=== PATIENT | female | born 1995 | race African-American/Black ===

== ENCOUNTER 2016-07-19 18:22 | Emergency (ER) | payer OTHER ==
[~2016-07-19] VITALS: Ht 162.6 cm; Wt 58.1 kg
[2016-07-19 18:31] VITALS: TEMP 37.5
--- NOTE | 2016-07-19 18:45 | EMERGENCY ROOM VISIT NOTE ---
History Report prepared by Tess: Jessica Fulton Under the Supervision of: Dr. Jadyn Cleary M.D. First contact with patient: 18:36 Chief Complaint: ED VAG BLEEDING Stated Complaint: POSSIBLE MISCARRIAGE,BLEEDING,CRAMPS,6-8 WKS PREG History of Present Illness The patient is a 21 year old female who presents to the Emergency Room with complaints of worsening vaginal bleeding beginning yesterday. She states that she took two at home test that were positive and went to the clinic [place] and tested positive for being . Yesterday she began to experience thick bleeding with back pain. She describes the back pain as a cramping sensation. She notes that she is passing clots. The patient notes that her normal period does not present with these symptoms. She denies fever or known medical problems. This is her second . She is scheduled for an appointment later this week with OBGYN. Source of History: patient Onset: yesterday Position: other (vaginal) Quality: other (bleeding) Timing: worsening Associated Symptoms: + back pain Note: The patient is bleeding thick and passing clots. Review of Systems See HPI for pertinent positives & negatives. A total of 10 systems reviewed and were otherwise negative. Past Medical & Surgical Medical Problems: (1) No known health problems Family History Cancer Diabetes mellitus Social History Smoking Status: Current Every Day Smoker Alcohol Use: occasionally Drug Use: none Housing Status: lives with family Occupation Status: employed Current/Historical Medications No Active Prescriptions or Reported Meds Allergies Coded Allergies: No Known Allergies (Unverified , 08/26/14) Physical Exam Vital Signs Date Time Temp Pulse Resp B/P Pulse Ox O2 Delivery O2 Flow Rate FiO2 07/19/16 21:42 81 16 120/71 99 07/19/16 20:23 80 16 118/72 99 Room Air 07/19/16 19:01 100 Room Air 07/19/16 18:31 37.5 86 18 122/73 96 Room Air Physical Exam Vital signs reviewed. General: Well-appearing female, in no significant distress. HEENT: No scleral icterus, PERRLA, neck supple. Atraumatic. Cardiovascular: Regular rate and rhythm, no extra sounds. Pulmonary: Clear to auscultation bilaterally, normal work of breathing. Abdomen: Soft, nontender, nondistended, positive bowel sounds. Musculoskeletal: Atraumatic, no peripheral edema. Neurologic: Patient awake alert and oriented x 3 Skin: Warm, dry, no rash Pelvic: Small amount of dark vaginal blood, cervix is closed. No CMT, no adnexal tenderness. Medical Decision & Procedures Laboratory Results 07/19/16 18:53 Red Blood Count 4.61, Mean Corpuscular Volume 85.0, Mean Corpuscular Hemoglobin 29.5, Mean Corpuscular Hemoglobin Concent 34.7, Mean Platelet Volume 10.2, Neutrophils (%) (Auto) 61.9, Lymphocytes (%) (Auto) 27.8, Monocytes (%) (Auto) 8.9, Eosinophils (%) (Auto) 1.1, Basophils (%) (Auto) 0.1, Neutrophils # (Auto) 5.62, Lymphocytes # (Auto) 2.53, Monocytes # (Auto) 0.81, Eosinophils # (Auto) 0.10, Basophils # (Auto) 0.01 07/19/16 18:53 Test 07/19/16 18:53 07/19/16 20:43 White Blood Count 9.09 K/uL (4.8-10.8) Red Blood Count 4.61 M/uL (4.2-5.4) Hemoglobin 13.6 g/dL (12.0-16.0) Hematocrit 39.2 % (37-47) Mean Corpuscular Volume 85.0 fL (80-100) Mean Corpuscular Hemoglobin 29.5 pg (25-34) Mean Corpuscular Hemoglobin Concent 34.7 g/dl (32-36) Platelet Count 220 K/uL (130-400) Mean Platelet Volume 10.2 fL (7.4-10.4) Neutrophils (%) (Auto) 61.9 % Lymphocytes (%) (Auto) 27.8 % Monocytes (%) (Auto) 8.9 % Eosinophils (%) (Auto) 1.1 % Basophils (%) (Auto) 0.1 % Neutrophils # (Auto) 5.62 K/uL (1.4-6.5) Lymphocytes # (Auto) 2.53 K/uL (1.2-3.4) Monocytes # (Auto) 0.81 K/uL (0.11-0.59) Eosinophils # (Auto) 0.10 K/uL (0-0.5) Basophils # (Auto) 0.01 K/uL (0-0.2) RDW Standard Deviation 38.2 fL (36.4-46.3) RDW Coefficient of Variation 12.4 % (11.5-14.5) Immature Granulocyte % (Auto) 0.2 % Immature Granulocyte # (Auto) 0.02 K/uL (0.00-0.02) Prothrombin Time 10.2 SECONDS (9.0-12.0) Prothromb Time International Ratio 1.0 (0.9-1.1) Activated Partial Thromboplast Time 24.0 SECONDS (21.0-31.0) Partial Thromboplastin Ratio 0.9 Anion Gap 6.0 mmol/L (3-11) Est Creatinine Clear Calc Drug Dose 113.1 ml/min Estimated GFR () 144.9 Estimated GFR (Non- 125.0 BUN/Creatinine Ratio 15.4 (10-20) Calcium Level 9.1 mg/dl (8.5-10.1) Total Bilirubin 0.3 mg/dl (0.2-1) Aspartate Amino Transf (AST/SGOT) 12 U/L (15-37) Alanine Aminotransferase (ALT/SGPT) 19 U/L (12-78) Alkaline Phosphatase 72 U/L (45-117) Total Protein 7.8 gm/dl (6.4-8.2) Albumin 4.0 gm/dl (3.4-5.0) Globulin 3.8 gm/dl (2.5-4.0) Albumin/Globulin Ratio 1.1 (0.9-2) Human Chorionic Gonadotropin, Quant 254 mIU/mL Urine Color ARCHANA Urine Appearance TURBID (CLEAR) Urine pH 7.5 (4.5-7.5) Urine Specific [place] 1.023 (1.000-1.030) Urine Protein 1+ (NEG) Urine Glucose (UA) NEG (NEG) Urine Ketones NEG (NEG) Urine Occult Blood 3+ (NEG) Urine Nitrite NEG (NEG) Urine Bilirubin NEG (NEG) Urine Urobilinogen NEG (NEG) Urine Leukocyte Esterase MODERATE (NEG) Urine WBC (Auto) >30 /hpf (0-5) Urine RBC (Auto) >30 /hpf (0-4) Urine Hyaline Casts (Auto) 10-30 /lpf (0-5) Urine Epithelial Cells (Auto) >30 /lpf (0-5) Urine Bacteria (Auto) 1+ (NEG) Urine Test POS (NEG) Laboratory results per my review. ED Course 183: Past medical records reviewed. The patient was evaluated in room C8. A complete history and physical examination was performed. Medical Decision The patient is a 21 year old female who presents to the ED with complaints of vaginal bleeding. Differentials include ectopic , dysfunction uterine bleeding, bleeding dyscrasia, trauma, infection, as well as others were entertained. This patient was evaluated and appeared to be in no significant distress. IV access was obtained and laboratory work was drawn. Patient was placed on the surveillance monitor and found to be in a normal sinus rhythm. Vital signs have remained stable. Pelvic exam was performed and reveals a small amount of dark vaginal bleeding. The cervix appears to be closed. Beta hCG is 254. Patient was sent for pelvic ultrasound. The case was s/o at the change of shift to Dr. Mcgraw, pending u/s report. Impression Primary Impression: Threatened Scribe Attestation The scribe's documentation has been prepared under my direction and personally reviewed by me in its entirety. I confirm that the note above accurately reflects all work, treatment, procedures, and medical decision making performed by me. Departure Information Prescriptions No Active Prescriptions or Reported Meds Referrals No Doctor, Assigned (PCP) Patient Instructions My [facility]
[2016-07-19 19:01] VITALS: O2SAT 100; Ht 162.6 cm; Wt 58.1 kg
[2016-07-19 19:02] LABS: BASO % 0.1 %; BASO ABS # 0.01 K/uL (0-0.2); COMPLETE YES; EOS % 1.1 %; HEMATOCRIT 39.2 % (37-47); IG% 0.2 %; LYMPH % 27.8 %; LYMPH ABS # 2.53 K/uL (1.2-3.4); MEAN CORPUSCULAR HEMOGLOBIN 29.5 pg (25-34); MEAN CORPUSCULAR HGB CONC 34.7 g/dl (32-36); MEAN PLATELET VOLUME 10.2 fL (7.4-10.4); MONO % 8.9 %; NEUT % 61.9 %; PLATELET COUNT 220 K/uL (130-400); RED BLOOD COUNT 4.61 M/uL (4.2-5.4); WHITE BLOOD COUNT 9.09 K/uL (4.8-10.8)
[2016-07-19 19:13] LABS: PARTIAL THROMBOPLASTIN RATIO 0.9; PROTHROMBIN TIME (PATIENT) 10.2 SECONDS (9.0-12.0)
[2016-07-19 19:25] LABS: BUN/CREATININE RATIO 15.4 (10-20); CALCIUM 9.1 mg/dl (8.5-10.1); CREATININE 0.68 mg/dl (0.60-1.20); POTASSIUM 3.6 mmol/L (3.5-5.1)
[2016-07-19 19:28] LABS: ALB/GLOB RATIO 1.1 (0.9-2)
--- NOTE | 2016-07-19 20:40 | DIAGNOSTIC IMAGING REPORT ---
ECTOPIC ULTRASOUND (transabdominal and endovaginal scanning) CLINICAL HISTORY: and vaginal bleeding COMPARISON STUDY: No previous studies for comparison. FINDINGS: The uterus measured 8.9 x 4.3 x 5.0 cm. No intrauterine gestational sac was visualized. The right ovary measured 20 x 32 x 17 mm and appear architecturally normal. The left ovary measured 29 x 33 x 17 mm and contains 2 complex foci which were potentially solid the largest of which measured 2.1 cm. The endometrium was heterogeneous and measured up to 9 mm. IMPRESSION: 1. No intrauterine gestational sac identified. In the setting of , diagnostic considerations therefore include missed , ectopic , or early intrauterine . Correlation with serial quantitative beta hCGs is recommended 2. 2 apparently solid left ovarian nodules measuring 21 mm and 15 mm respectively. Electronically signed by: Boaz Green M.D. 07/19/2016 8:39 PM Dictated Date/Time: 07/19/2016 8:35 PM
[2016-07-19 21:16] LABS: URINE APPEARANCE TURBID (CLEAR); URINE BILIRUBIN NEG (NEG); URINE EPITHELIAL CELL AUTO >30 /lpf (0-5); URINE NITRITE NEG (NEG); URINE PH 7.5 (4.5-7.5); URINE SPECIFIC GRAVITY 1.023 (1.000-1.030); UROBILINOGEN NEG (NEG)
[2016-07-19 21:17] LABS: URINE COLOR AMBER
[2016-07-19 21:18] LABS: MANUAL MICROSCOPIC REQUIRED? NO; REVIEW REQ? NO
[2016-07-19 21:22] LABS: SULFASALICYLIC ACID POS (NEG)
[2016-07-19 21:42] VITALS: BP 120/71; PULSE 81; O2SAT 99
--- NOTE | 2016-07-20 00:38 | EMERGENCY ROOM VISIT NOTE ---
ED Visit Note 21 yr old female with vaginal bleeding who presumes she is 6-8 wks . Initially evaluation by Dr Cleary with labs revealing HCG 400 and US ordered. Signed out to me awaiting US findings. US without evidence of IUP nor free fluid in pelvis. She is walking around room in no distress very much wishing to go home. She is stable and feels well. We discussed at length that if this is normal it is very early, otherwise she is likely having a miscarriage. Did note to patient there is still a chance of ectopic but no evidence of this currently. Reviewed symptoms to monitor for at home. Stressed follow up with her [employer] (Theresa) in the next few days for repeat evaluation and she will call them in AM.
== END 2016-07-19 21:44 | disposition home or self-care (01) ==
LOC: C.EDB 18:24 → C.EDC 21:44
DX: O20.0 Threatened abortion (principal); F17.200 Nicotine dependence, unspecified, uncomplicated; Z80.9 Family history of malignant neoplasm, unspecified; Z83.3 Family history of diabetes mellitus

== ENCOUNTER → 2016-10-06 | Outpatient (CLI) | payer OTHER | END | disposition home or self-care (01) | LOC: C.LAB1850 11:03 | PROVIDERS: ATTEND Obstetrics & Gynecology | DX: Z34.90 Encounter for supervision of normal pregnancy, unspecified, unspecified trimester (principal) ==

== ENCOUNTER → 2016-10-20 | Outpatient (CLI) | payer OTHER ==
[2016-10-24 05:52] LABS: CHLAMYDIA TRACH RNA*** NOT DETECTED (NOT DETECTED); GC (NEIS GONORRHOEAE)RNA** NOT DETECTED (NOT DETECTED)
== END | disposition home or self-care (01) ==
LOC: C.LABSPEC 17:50
PROVIDERS: ATTEND Physician Assistant
DX: N89.8 Other specified noninflammatory disorders of vagina (principal)

== ENCOUNTER → 2016-10-20 | Outpatient (CLI) | payer BC, OTHER | END | disposition home or self-care (01) | LOC: C.PAPS 10:19 | PROVIDERS: ATTEND Physician Assistant | DX: Z12.4 Encounter for screening for malignant neoplasm of cervix (principal) ==

== ENCOUNTER → 2016-12-07 | Outpatient (CLI) | payer OTHER ==
[2016-12-07 14:18] LABS: URINE APPEARANCE CLEAR (CLEAR); URINE BILIRUBIN NEG (NEG); URINE COLOR YELLOW; URINE EPITHELIAL CELL AUTO >30 /lpf (0-5); URINE NITRITE NEG (NEG); URINE PH 8.5 (4.5-7.5); URINE SPECIFIC GRAVITY 1.019 (1.000-1.030); UROBILINOGEN NEG (NEG)
[2016-12-07 14:28] LABS: MANUAL MICROSCOPIC REQUIRED? NO; REVIEW REQ? NO
== END | disposition home or self-care (01) ==
LOC: C.LABSPEC 12:54
PROVIDERS: ATTEND Obstetrics & Gynecology
DX: Z34.92 Encounter for supervision of normal pregnancy, unspecified, second trimester (principal)

== ENCOUNTER → 2016-12-08 | Outpatient (CLI) | payer OTHER ==
[2016-12-08 13:31] LABS: BASO % 0.1 %; BASO ABS # 0.01 K/uL (0-0.2); COMPLETE YES; EOS % 0.6 %; HEMATOCRIT 33.2 % (37-47); IG% 0.1 %; LYMPH % 20.8 %; MEAN CELL VOLUME 83.2 fL (80-100); MEAN CORPUSCULAR HEMOGLOBIN 30.1 pg (25-34); MEAN CORPUSCULAR HGB CONC 36.1 g/dl (32-36); MEAN PLATELET VOLUME 9.8 fL (7.4-10.4); MONO % 4.7 %; NEUT % 73.7 %; PLATELET COUNT 215 K/uL (130-400); RED BLOOD COUNT 3.99 M/uL (4.2-5.4); WHITE BLOOD COUNT 7.22 K/uL (4.8-10.8)
== END | disposition home or self-care (01) ==
LOC: C.LAB1850 12:38
PROVIDERS: ATTEND Obstetrics & Gynecology
DX: O09.32 Supervision of pregnancy with insufficient antenatal care, second trimester (principal)

== ENCOUNTER 2016-12-26 18:28 | Emergency (ER) | payer OTHER ==
[~2016-12-26] VITALS: Ht 162.6 cm; Wt 63.9 kg
[2016-12-26 18:42] VITALS: TEMP 36.9; Ht 162.6 cm; Wt 63.9 kg
[2016-12-26] MEDS ORDERED: AMOX500C3 PO (19:20)
[2016-12-26] MEDS ORDERED: OXYC-57 PO (19:20)
--- NOTE | 2016-12-26 19:21 | EMERGENCY ROOM VISIT NOTE ---
ED Visit Note First contact with patient: 19:01 CHIEF COMPLAINT: Left upper dental pain 4 days HISTORY OF PRESENT ILLNESS: Patient is a 20 week 21-year-old - Croat[place] female who presents emergency department for evaluation of left upper dental pain. She reports pain from the left upper rear molar. She problems with it a couple of years ago, and apparently required some dental work at that time, but did not follow through with it. She has noted progressively worsening pain in the tooth over the last 4 days. She's tried salt water gargles, Orajel, sucking on a tea bag, and taking Tylenol. She notes a throbbing, constant, 10/10 pain. She has an appointment with [facility] tomorrow afternoon. She denies any foul tasting fluid or drainage into her mouth. No facial swelling or fevers. REVIEW OF SYSTEMS: Review of systems as per HPI. All other systems reviewed were negative. At least 6 systems reviewed. PMH: Electronic medical records are reviewed and summarized as above/below. See Problem List. SOCIAL HISTORY: Patient lives at home. Employed. She does not smoke. PHYSICAL EXAM: Vital Signs: Reviewed Nurse's notes. CONSTITUTIONAL: Patient is a well-appearing 21-year-old -[place] female who is awake and alert and in no acute distress. Vital signs are stable. EARS: Tympanic membranes intact, not inflamed, have normal contour. External canals clear. MOUTH: Overall the patient has good dentition. The left upper rear molar in question has an obvious cavity, and is tender to percussion. There is slight swelling along the gumline although no focal abscess. Mucous membranes moist, no lesions, tongue and gums appear normal. THROAT: No pharyngeal injection, exudates, or tonsillar hypertrophy. Airway is patent. No trismus noted. FACE: No facial swelling is appreciated. No cellulitic changes. NECK: No lymphadenopathy. . ED course: The patient was seen and evaluated as above. Old records were reviewed. She does not have any evidence for facial cellulitis or Ayaan's angina. Cautious use of narcotics short-term for her pain into she can be seen by the dentist was discussed with the patient, and she expressed understanding of this. She should also be covered for infection given her early . She was placed on amoxicillin. She was given a small prescription for Percocet. She was advised to follow-up with the dentist as she has scheduled tomorrow for definitive care and management. Medication reconciliation: I attest that I have personally reviewed the patient' s current medication list. Blood pressure screening : Patient was found to have normal blood pressure on screening and does not require follow-up. Patient was reviewed in the [facility] Prescription Drug Monitoring Program, and there were no red flags noted. Problem List Medical Problems: (1) Active labor Status: Resolved (2) Dental caries Status: Resolved (3) No known health problems Status: Chronic (4) Pain, dental Status: Resolved (5) Status: Resolved Current/Historical Medications Scheduled Amoxicillin (Amoxil), 500 MG PO TID Multivit/Min/Iron/Fol Ac/Pren ( Vitamin), 1 TAB PO DAILY Scheduled PRN Oxycodone/Acetaminophen 5MG/325MG (Percocet 5MG/325MG), 1-2 TABS PO Q4 PRN for Pain Allergies Coded Allergies: No Known Allergies (Unverified , 08/26/14) Vital Signs Date Time Temp Pulse Resp B/P (MAP) Pulse Ox O2 Delivery O2 Flow Rate FiO2 12/26/16 19:38 72 120/82 99 12/26/16 18:42 36.9 91 20 130/94 100 Room Air Departure Information Impression Primary Impression: Pain, dental Prescriptions Oxycodone/Acetaminophen 5MG/325MG (PERCOCET 5MG/325MG) Tab 1-2 TABS PO Q4 Y for Pain, #15 TAB For Initial Treatment Prov: Christina Rodarte PA 12/26/16 Amoxicillin (AMOXIL) 500 Mg Cap 500 MG PO TID, #30 CAP Prov: Christina Rodarte PA 12/26/16 Referrals No Doctor, Assigned (PCP) Patient Instructions My [facility] Additional Instructions Amoxicillin 500mg: Take one pill four times daily for 10 days for your dental infection. All antibiotics can cause diarrhea. If this occurs and you feel worse or it does not resolve in 1-2 days follow up with your doctor or return to the Emergency Department as this could be signs of serious underlying problems. Any medication can cause an allergic reaction, stop the pills immediately and return to the ER for rash, hives, breathing difficulties, or swelling. Acetaminophen(Tylenol) may be used for fever or pain. Use 1000mg every six hours as needed. Avoid using more than 4000mg in a 24 hour period. Percocet 5/325 mg: Take 1-2 pills every four hours for breakthrough pain. Avoid alcohol, operating machinery or dangerous equipment, working on ladders or roofs, DRIVING, or situations where being under the influence may be dangerous. It is recommended to use an [id number] stool softener such as Colace, 100mg twice daily while taking this medication to avoid constipation. Saltwater gargles after meals and before bedtime. Soft foods. Orajel/Anbesol/clove oil as needed for discomfort. Followup with your dentist as you have scheduled. You may also follow up with your primary care physician for pain/care management until you can be seen by your dentist.
[2016-12-26 19:38] VITALS: BP 120/82; PULSE 72; O2SAT 99
[2016-12-26] MEDS ORDERED: PRENTAB26 PO (19:41)
== END 2016-12-26 19:35 | disposition home or self-care (01) ==
LOC: C.EDB 18:29 → C.EDD 19:35
DX: K08.89 Other specified disorders of teeth and supporting structures (principal); O99.612 Diseases of the digestive system complicating pregnancy, second trimester; Z3A.20 20 weeks gestation of pregnancy

== ENCOUNTER → 2016-12-27 | Outpatient (CLI) | payer OTHER ==
[~2016-12-27] MED LIST: AMOX500C3 PO; OXYC-57 PO; PRENTAB26 PO
[2016-12-27 13:39] LABS: GTGD 50 Grams
== END | disposition home or self-care (01) ==
LOC: C.LAB1850 11:49
PROVIDERS: ATTEND Obstetrics & Gynecology
DX: O09.32 Supervision of pregnancy with insufficient antenatal care, second trimester (principal)

== ENCOUNTER → 2017-02-20 | Outpatient (CLI) | payer OTHER ==
[~2017-02-20] MED LIST changes: -AMOX500C3 PO
[2017-02-20 14:15] LABS: URINE APPEARANCE CLEAR (CLEAR); URINE BILIRUBIN NEG (NEG); URINE COLOR YELLOW; URINE EPITHELIAL CELL AUTO >30 /lpf (0-5); URINE NITRITE NEG (NEG); URINE PH 7.5 (4.5-7.5); URINE SPECIFIC GRAVITY 1.019 (1.000-1.030); UROBILINOGEN NEG (NEG)
[2017-02-20 14:17] LABS: MANUAL MICROSCOPIC REQUIRED? NO; REVIEW REQ? NO
== END | disposition home or self-care (01) ==
LOC: C.LABSPEC 13:48
PROVIDERS: ATTEND Obstetrics & Gynecology
DX: O09.32 Supervision of pregnancy with insufficient antenatal care, second trimester (principal); Z3A.00 Weeks of gestation of pregnancy not specified

== ENCOUNTER → 2017-02-20 | Outpatient (CLI) | payer OTHER ==
[2017-02-20 13:16] LABS: HEMATOCRIT 31.9 % (37-47)
[2017-02-20 14:03] LABS: GTGD 50 Grams
== END | disposition home or self-care (01) ==
LOC: C.LAB1850 11:40
PROVIDERS: ATTEND Obstetrics & Gynecology
DX: O09.32 Supervision of pregnancy with insufficient antenatal care, second trimester (principal); Z3A.00 Weeks of gestation of pregnancy not specified

== ENCOUNTER → 2017-04-20 | Outpatient (CLI) | payer OTHER | END | disposition home or self-care (01) | LOC: C.LABSPEC 18:09 | PROVIDERS: ATTEND Obstetrics & Gynecology | DX: O09.33 Supervision of pregnancy with insufficient antenatal care, third trimester (principal); Z3A.00 Weeks of gestation of pregnancy not specified ==

== ENCOUNTER 2017-05-25 04:56 | Inpatient (IN) | payer OTHER ==
[~2017-05-25] VITALS: Ht 162.6 cm; Wt 77.3 kg
[2017-05-25] MEDS ORDERED: LACTATED RINGER'S 1000ML 1,000 ML IV PRN (05:08)
[2017-05-25] MEDS ORDERED: BUPIVACAINE 0.25% 30 ML VIAL ONE (05:18)
[2017-05-25] MEDS ORDERED: EpHEDrine SULFATE INJ 50 MG/ML AMP ONE (05:18)
[2017-05-25] MEDS ORDERED: FENTANYL CITRATE INJ 50 MCG/1 ML 2 ML VIAL ONE (05:19)
[2017-05-25] MEDS ORDERED: FENTANYL 2MCG/ML ROPIV 1.25MG/ML 100ML BAG EPI ONE (05:19)
[2017-05-25 05:30] LABS: HEMATOCRIT 36.2 % (37-47); HEMOGLOBIN 12.6 g/dL (12.0-16.0); MEAN CELL VOLUME 81.2 fL (80-100); MEAN CORPUSCULAR HEMOGLOBIN 28.3 pg (25-34); MEAN CORPUSCULAR HGB CONC 34.8 g/dl (32-36); MEAN PLATELET VOLUME 9.6 fL (7.4-10.4); PLATELET COUNT 204 K/uL (130-400); RED CELL DISTRIBUTION WIDTH CV 13.4 % (11.5-14.5); RED CELL DISTRIBUTION WIDTH SD 39.4 fL (36.4-46.3); WHITE BLOOD COUNT 8.21 K/uL (4.8-10.8)
[2017-05-25 05:38] VITALS: Ht 162.6 cm; Wt 77.3 kg
[2017-05-25] MEDS ORDERED: FERR1TAB23 (05:42)
[2017-05-25] MEDS ORDERED: INFLUENZA ADMINISTRATION CHARGE ONE (06:00)
[2017-05-25] MEDS ORDERED: INFLUENZA VIRUS QUAD VACCINE 0.5 ML SYR IM. ONE (06:00)
[2017-05-25] MEDS: LACTATED RINGER'S 1000ML 1,000 ML IV SCH ×2 (06:13→14:20)
[2017-05-25] MEDS ORDERED: LACTATED RINGER'S 1000ML 500 ML IV PRN ×2 (06:53→09:21)
[2017-05-25] MEDS ORDERED: NALOXONE HCL INJ 1 MG in SODIUM CHLORIDE 0.9% 1000ML 1,000 ML IV PRN (06:53)
[2017-05-25] MEDS ORDERED: NALBUPHINE HCL INJ 10 MG/ML AMP IV PRN (07:00)
[2017-05-25] MEDS ORDERED: NALOXONE HCL INJ 0.4 MG/1 ML VIAL/CARP IV PRN (07:00)
[2017-05-25] MEDS ORDERED: ONDANSETRON INJ 2 MG/ML 2 ML VIAL IV PRN (07:00)
[2017-05-25] MEDS ORDERED: DiphenhydrAMINE HCL 50 MG/ML VIAL IV PRN (07:00)
[2017-05-25] MEDS ORDERED: EpHEDrine SULFATE INJ 50 MG/ML AMP IV PRN (07:00)
[2017-05-25] MEDS ORDERED: OXYTOCIN 30 UNITS/500ML NSS IV ONE (07:52)
[2017-05-25] MEDS ORDERED: OXYTOCIN 30 UNITS/500ML NSS IV PRN ×2 (09:30→15:15)
[2017-05-25] MEDS: FENTANYL 2MCG/ML ROPIV 1.25MG/ML 100ML BAG EPI PRN ×2 (11:53→13:33)
[2017-05-25] MEDS ORDERED: OXYTOCIN INJ 20 UNITS in LACTATED RINGER'S 1000ML 1,000 ML IV SCH (15:09)
[2017-05-25] MEDS ORDERED: SUPERCREAM 0.870 % 15GM JAR EXT PRN (15:15)
[2017-05-25] MEDS ORDERED: LANOLIN OINT EXT PRN (15:15)
[2017-05-25] MEDS ORDERED: CARBOPROST TROMETHAMINE 250 MCG/ML AMP IM ONE (15:15)
[2017-05-25] MEDS ORDERED: ACETAMINOPHEN 325 MG TAB PO PRN (15:15)
[2017-05-25] MEDS ORDERED: METHYLERGONOVINE MALEATE 0.2 MG/ML AMP IM ONE (15:15)
[2017-05-25] MEDS ORDERED: HYDROCORTISONE ACETATE 25 MG SUPP PR PRN (15:15)
[2017-05-25] MEDS ORDERED: MISOPROSTOL 200 MCG TAB PR ONE (15:15)
[2017-05-25] MEDS ORDERED: OXYTOCIN INJ 10 UNITS/ML VIAL IM ONE (15:15)
[2017-05-25] MEDS ORDERED: BENZOCAINE 20% AER SPR 82.5 GM CAN EXT PRN (15:15)
[2017-05-25] MEDS ORDERED: OXYCODONE/ACETAMINOPHEN 5-325 TAB PO PRN (15:15)
--- NOTE | 2017-05-25 15:20 | DELIVERY SUMMARY ---
DATE OF OPERATION: 05/25/2017 The patient dilated to anterior lip. With 2 contractions, we reduced the anterior lip and she began the second stage. She pushed to deliver a viable female infant from ROP position with Apgars 7 and 8 via over small vaginal laceration. With delivery of the cephalic, Alisha maneuvers were necessary to deliver the anterior shoulder representing a mild shoulder dystocia. Subsequent to that , the nose and mouth were bulb suctioned. Remainder of the body was delivered with further maternal expulsive efforts. The infant was vigorous at . The cord was clamped and then the was placed on the maternal abdomen where the cord was doubly clamped and cut. The infant was then taken to the radiant warmer for drying and attention. The placenta was delivered spontaneously and intact 3-vessel cord. Hemostasis was achieved with uterine massage and bimanual massage and dilute Pitocin. The laceration was reapproximated with a [id number] suture of 4-0 Vicryl. The cervix and the sulci were intact. The bladder was drained under sterile conditions for 50 mL of urine. EBL was 300 mL. Mother and baby stable in recovery. Cord blood and cord gases were obtained. I attest to the content of the Intraoperative Record and any orders documented therein. Any exceptions are noted below. MTDD
--- NOTE | 2017-05-25 16:13 | Anesthesia Procedure Note ---
Anesthesia Epidural Removal Nt Date & Time May 25, 2017 at 16:13 Vital Signs Pain Intensity: 5.0 Notes Mental Status: alert / awake / arousable, participated in evaluation Nausea / Vomiting: adequately controlled Pain: adequately controlled Airway Patency, RR, SpO2: stable & adequate BP & HR: stable & adequate Hydration State: stable & adequate Neuraxial Anesthesia: was administered Anesthetic Complications: no major complications apparent, pt satisfied with anesthetic care Epidural: removed without complications, with tip intact
[2017-05-25 17:45] VITALS: BP 120/74; PULSE 101; TEMP 36.5; O2SAT 97
[2017-05-25] MEDS: IBUPROFEN 600 MG TAB PO PRN (18:09)
[2017-05-25 20:00] VITALS: BP 120/74; PULSE 101; TEMP 36.5; O2SAT 97
[2017-05-25] MEDS: DOCUSATE SODIUM 100 MG CAP PO SCH (20:00)
[2017-05-25 20:45] VITALS: BP 122/79; PULSE 93; TEMP 36.4
[2017-05-26 00:05] VITALS: BP 127/75; PULSE 101; TEMP 36.7
[2017-05-26] MEDS: IBUPROFEN 600 MG TAB PO PRN ×5 (00:10→19:57)
[2017-05-26 04:35] VITALS: BP 117/76; PULSE 87; TEMP 36.4
--- NOTE | 2017-05-26 06:30 | Progress Note ---
Subjective May 26, 2017. Subjective conversation w/ patient, physical exam Ambulation: ambulating normally Voiding: no voiding problems Passing Gas: Yes Diet Tolerance: Regular Diet Lochia: Moderate Feeding Type: Bottle Feeding Pain: Reports general soreness but rates at 8/10 Comment: pt seen and assessed at bedside; no acute events overnight Review of Systems Constitutional: No fever, No chills Respiratory: No cough, No shortness of breath Cardiac: No chest pain, No edema Abdomen: No nausea, No vomiting no headaches or calf pain Objective Vital Signs Date Time Temp Pulse Resp B/P (MAP) Pulse Ox O2 Delivery O2 Flow Rate FiO2 05/26/17 04:35 36.4 87 18 117/76 (90) Room Air 05/26/17 00:05 Room Air 05/26/17 00:05 36.7 101 18 127/75 (92) Room Air 05/25/17 20:45 36.4 93 20 122/79 (93) Room Air 05/25/17 20:00 36.5 101 20 120/74 (89) 97 Room Air 05/25/17 17:45 36.5 101 20 120/74 (89) 97 Room Air 05/25/17 17:45 97 Room Air Physical Exam General Appearance: WELL-APPEARING, WD/WN, NO APPARENT DISTRESS Respiratory/Chest: chest non-tender, lungs clear, normal breath sounds Cardiovascular: regular rate, rhythm, no edema, no murmur Abdomen: normal bowel sounds, non tender, soft Fundus: Firm, Non-Tender, Relation to Umbilicus (@umbilicus to 1 below) Extremities: normal range of motion, non-tender, normal inspection, no pedal edema, no calf tenderness Laboratory Results Last Resulted 05/25/17 05:16 Medications Current Inpatient Medications Medications (Trade) Dose Ordered Sig/Vivien Route Start Time Stop Time Status Last Admin Dose Admin Oxytocin 20 units/ Lactated Ringer's 1,002 ml @ 125 mls/hr Q8H1M IV 05/25/17 15:09 05/26/17 07:10 05/25/17 16:29 125 MLS/HR Oxytocin (Pitocin IV) 30 units UD PRN IV 05/25/17 15:15 06/24/17 15:14 Benzocaine (Dermoplast Aero Spr) 1 appln PRN PRN EXT 3/22/18 15:15 06/24/17 15:14 05/25/17 18:10 1 APPLN Cocaine HCl (Supercream 0.870% Cr) BID PRN EXT 05/25/17 15:15 06/08/17 15:14 Hydrocortisone Acetate (Anusol Hc Supp) 25 mg BID PRN ID 05/25/17 15:15 06/24/17 15:14 Lanolin (Lanolin Oint) PRN PRN EXT 05/25/17 15:15 06/24/17 15:14 Ibuprofen (Motrin Tab) 600 mg Q4H PRN PO 05/25/17 15:15 06/24/17 15:14 05/26/17 00:10 600 MG Acetaminophen (Tylenol Tab) 650 mg Q6H PRN PO 05/25/17 15:15 06/24/17 15:14 05/25/17 15:25 650 MG Oxycodone/ Acetaminophen (Percocet 5-325mg Tab) 1 tab Q4H PRN PO 05/25/17 15:15 06/08/17 15:14 Docusate Sodium (coLACE CAP) 100 mg BID PO 05/25/17 20:00 06/24/17 19:59 Diphtheria/ Pertussis/Tetanus Vacc (Adacel Inj) 0.5 ml ONCE ONCE IM. 05/26/17 09:00 05/26/17 09:01 Assessment and Plan Problem List Medical Problems: (1) No known health problems Status: Chronic (2) Threatened Status: Acute Post- (1) Day#: 1 Continue Routine Care: 22yo black female PPD 1 s/p Pt doing well clinically Continue routine care Encourage ambulation Pain control with rx meds prn Resident Physician Supervision Note: I interviewed and examined the patient. Discussed with Dr. Smiht and agree with findings and plan as documented in the note. Any exceptions or clarifications are listed here: i saw pt. routine care. rhogam eval pending. discussed pain management for cramps. Documented By: Debi Preciado Resident Tracking Resident Involvement: Resident Care Provided Care Provided: OB Delivery
--- NOTE | 2017-05-26 06:46 | Discharge Instructions ---
Discharge Instructions Date of Service May 26, 2017. Admission Reason for Admission: Normal Labor Discharge Discharge Diagnosis / Problem: s/p Discharge Goals Goal(s): Routine recovery after delivery Medications Continue Dispensed Medications: supercream, dermaplast, tucks, lansinoh Activity Recommendations Activity Limitations: per Instructions/Follow-up section . Instructions / Follow-Up Instructions / Follow-Up ACTIVITY RECOMMENDATIONS: * Gradual return to full activity over the next 2-3 weeks. * No lifting - nothing heavier than baby over the next 2-3 weeks. * Do not engage in vigorous exercise, sexual activity or sports until cleared by your physician. * Do not drive or operate any motorized equipment until cleared by your physician. * You may shower/bathe daily. MEDICATIONS: For discomfort or pain, you may use Acetaminophen (Tylenol), Ibuprofen (Advil), or Naproxen (Aleve) following the package directions. For constipation you may use Colace following the package directions. BREAST CARE: If you are not breast feeding: * Wear a supportive bra 24 hours a day for one to two weeks. * Avoid stimulating your breasts and nipples as much as possible during the first few weeks after delivery. * When taking a shower, have the warm water hit your back, not breasts. * When your breasts feel full, apply ice packs. Usually three to four times a day helps ease the discomfort. * Take a mild pain medication (Tylenol / Motrin) when you are uncomfortable. If breast feeding: * Use breast milk to lubricate nipples. Lansinoh cream may be used for sore nipples. You do not need to remove cream prior to breast feeding. If using a different brand of cream, check the label for directions regarding removal of cream prior to nursing. * Wear a supportive bra. * If having problems with breasts or breast feeding, call a individual pension consultant or your health care provider. EPISIOTOMY CARE: After delivery, if you have an episiotomy (stitches), the following steps will ease discomfort and aid healing. * For the first 24 hours after delivery, place ice packs next to your episiotomy to help reduce swelling. * After the first 24 hour-period, sitz baths, either portable or in the tub, are suggested. A shower with a shower arm sprayed over the episiotomy may be comforting. * Sary care should be done after each voiding and bowel movement. Squirt warm water from a plastic bottle over the perineum (region of the body between the anus and urinary opening) and pat dry. * Use Dermoplast to ease discomfort. Shake container. [place] directly over the episiotomy. Place a Tucks on a clean sanitary pad next to your episiotomy. SPECIAL CARE INSTRUCTIONS: When you are discharged from the hospital, it is important for you to follow the instructions listed below: * During the first week at home, you should be able to care for yourself and your baby. In addition, the usual light household activities are encouraged. * Limit your activities to the way you feel. Do not try to clean the house or move furniture. Be sensible. * If you actively engage in sports and have done so up until the time of your delivery, you may resume these activities as soon as you feel able. This may take up to one month or even longer. Use good judgment. * Continue to take your vitamins for at least six weeks after the of your baby. * Your diet need not be limited unless you were on a special diet before your delivery. Breast-feeding mothers need around 2500 calories per day and at least 64-80 ounces of fluid per day (8 to 10 glasses). * You should eat foods from the four major food groups. Crash diets or fad diets are to be avoided. Eating lean meats, fresh fruits and vegetables, low-fat dairy products, high fiber foods and a regular exercise program, will help you get back to your pre- weight without putting your health at risk. * Constipation is sometimes a problem after delivery. Take a mild laxative as needed. If breast feeding, Milk of Magnesia is acceptable to use. You may use a suppository or Fleets enema if no episiotomy. * A daily shower or tub bath is suggested. Be sure to thoroughly and gently dry the perineum. * A bloody vaginal discharge will usually continue until around four weeks post . A small amount of bleeding may continue for as long as six weeks. Vaginal discharge changes from the bright red bleeding after delivery to pink then brownish and finally yellowish-pink before becoming white and disappearing. * Bleeding may increase with activity. Your first period may come in 4-8 weeks. If you are breast feeding, your period may be delayed even longer. * Wilson (sex) can begin whenever both you and your partner feel comfortable and do not have any form of genital infection. It is recommended that you wait at least six weeks for internal and external healing to occur. If you have questions, please talk to your health care practitioner. A condom should be used to prevent infection and . * Foreplay, gentle intercourse and lubrication is very important the first several times to prevent pain. A water-based lubricant such as K-Y jelly or Astroglide may be used. * If you have RH negative blood and your baby is RH positive, you will receive RHOGAM by injection prior to discharge. The nurse will give you a card to keep with you that has the date and place that you received RHOGAM after delivery. * During your care, you had a Rubella screen done to check for the presence of rubella antibodies in your blood. If your test was negative, you will receive a Rubella vaccine prior to discharge. This vaccine may cause a fever, soreness at the injection site and flu-like symptoms. If these symptoms persist, notify your health care practitioner. is not advised for one month after a Rubella vaccine. * Verbalizes understanding of car seat law as reviewed with patient nursing. * Car Seat hand-out given and reviewed with patient by nursing. * Shaken baby information reviewed with patient by nursing. Call you doctor if: * Heavy bleeding (saturating several pads an hour) or passing clots the size of your fist. * A fever >101 degrees F (38.3 degrees C) on two occasions four hours apart and /or chills. * Unusual pain in the pelvic or vaginal areas. * "Baby Blues" lasting longer than two weeks. If you have any questions or concerns, call your health care practitioner at . FOLLOW UP VISIT: * Please call the office at to schedule a 6 week examination. It is important you keep this appointment. It is important for you to make arrangements for either yearly or twice yearly check-ups thereafter. Current Hospital Diet Patient's current hospital diet: Regular OB Diet Discharge Diet Recommended Diet: Regular OB Diet Pending Studies Studies pending at discharge: no Medical Emergencies . Who to Call and When: Medical Emergencies: If at any time you feel your situation is an emergency, please call 911 immediately. . Non-Emergent Contact Non-Emergency issues call your: Trial Mgr . . "Provider Documentation" section prepared by Birdie Smith. .
[2017-05-26] MEDS: DOCUSATE SODIUM 100 MG CAP PO SCH ×2 (07:50→19:58)
[2017-05-26 08:35] VITALS: BP 114/78; TEMP 36.8; O2SAT 98
[2017-05-26] MEDS ORDERED: DIPHTHERIA/TETANUS/PERTUSSIS 0.5 ML SYR/VIAL IM. ONE (09:00)
[2017-05-26 11:10] VITALS: BP 119/81; PULSE 91; TEMP 36.7; O2SAT 99
[2017-05-26 15:30] VITALS: BP 118/71; PULSE 98; TEMP 36.5; O2SAT 98
[2017-05-26 23:35] VITALS: BP 114/70; PULSE 71; TEMP 36.4; O2SAT 99
--- NOTE | 2017-05-27 06:37 | Progress Note ---
Subjective May 27, 2017. Subjective conversation w/ patient, physical exam Ambulation: ambulating normally Voiding: no voiding problems Passing Gas: Yes Diet Tolerance: Regular Diet Lochia: Small Feeding Type: Bottle Feeding Pain: improved from yesterday, well controlled Comment: pt seen and examined at bedside; no acute events overnight Review of Systems Constitutional: No fever, No chills Respiratory: No cough, No shortness of breath Cardiac: + edema, No chest pain Abdomen: No pain, No nausea, No vomiting no headaches or calf pain Objective Vital Signs Date Time Temp Pulse Resp B/P (MAP) Pulse Ox O2 Delivery O2 Flow Rate FiO2 05/26/17 23:35 99 Room Air 05/26/17 23:35 36.4 71 20 114/70 (85) Room Air 05/26/17 15:30 36.5 98 18 118/71 (87) 98 Room Air 05/26/17 15:30 98 Room Air 05/26/17 11:10 36.7 91 18 119/81 (94) 99 Room Air 05/26/17 08:35 98 Room Air 05/26/17 08:35 36.8 20 114/78 (90) 98 Room Air Physical Exam General Appearance: WELL-APPEARING, WD/WN, NO APPARENT DISTRESS Respiratory/Chest: chest non-tender, lungs clear, normal breath sounds Cardiovascular: regular rate, rhythm, no murmur Abdomen: normal bowel sounds, non tender, soft Fundus: Firm, Non-Tender, Relation to Umbilicus (3 below) Extremities: normal range of motion, non-tender, normal inspection, no calf tenderness, + pedal edema (1 plus bilaterally) Laboratory Results Last Resulted 05/25/17 05:16 Medications Current Inpatient Medications Medications (Trade) Dose Ordered Sig/Vivien Route Start Time Stop Time Status Last Admin Dose Admin Oxytocin (Pitocin IV) 30 units UD PRN IV 05/25/17 15:15 06/24/17 15:14 Benzocaine (Dermoplast Aero Spr) 1 appln PRN PRN EXT 05/25/17 15:15 06/24/17 15:14 05/25/17 18:10 1 APPLN Cocaine HCl (Supercream 0.870% Cr) BID PRN EXT 05/25/17 15:15 06/08/17 15:14 Hydrocortisone Acetate (Anusol Hc Supp) 25 mg BID PRN [place] 05/25/17 15:15 06/24/17 15:14 Lanolin (Lanolin Oint) PRN PRN EXT 05/25/17 15:15 06/24/17 15:14 Ibuprofen (Motrin Tab) 600 mg Q4H PRN PO 05/25/17 15:15 06/24/17 15:14 05/26/17 19:57 600 MG Acetaminophen (Tylenol Tab) 650 mg Q6H PRN PO 05/25/17 15:15 06/24/17 15:14 05/25/17 15:25 650 MG Oxycodone/ Acetaminophen (Percocet 5-325mg Tab) 1 tab Q4H PRN PO 05/25/17 15:15 06/08/17 15:14 05/26/17 06:41 1 TAB Docusate Sodium (coLACE CAP) 100 mg BID PO 05/25/17 20:00 06/24/17 19:59 05/26/17 19:58 100 MG Assessment and Plan Problem List Medical Problems: (1) No known health problems Status: Chronic (2) Threatened Status: Acute Post- (1) Day#: 2 Continue Routine Care: 22yo PPD 2 s/p Doing well clinically Continue routine care Encourage ambulation Pain control with rx prn Home today; Discharge instructions reviewed Resident Physician Supervision Note: I was present with Dr. Smith during the history and exam. I discussed the case with the resident and agree with the findings and plan as documented in the note. Any exceptions or clarifications are listed here: PPD#2 doing well. Discharge to home today. Discharge instructions discussed. Documented By: Yamile Davidson Resident Tracking Resident Involvement: Resident Care Provided Care Provided: OB Delivery
[2017-05-27] MEDS: IBUPROFEN 600 MG TAB PO PRN (08:03)
[2017-05-27 08:05] VITALS: BP 99/58; PULSE 87; TEMP 36.5
[2017-05-27 09:12] VITALS: BP_DIAS 58; PULSE 87; TEMP 36.5
[2017-05-27] MEDS: DOCUSATE SODIUM 100 MG CAP PO SCH (09:34)
== END 2017-05-27 11:30 | disposition home or self-care (01) | DRG 775 ==
LOC: C.OPB 04:56 → C.LD 05:01 → C.OPB 05:09 → C.LD 05:09 → C.OBG 17:05
PROVIDERS: ADMIT Obstetrics & Gynecology; ATTEND Obstetrics & Gynecology
PROC: 0HQ9XZZ Repair Perineum Skin, External Approach (ICD-10-PCS; principal; 2017-05-25)
PROC: 10E0XZZ Delivery of Products of Conception, External Approach (ICD-10-PCS; principal; 2017-05-25)
DX: O48.0 Post-term pregnancy (principal); O71.4 Obstetric high vaginal laceration alone; Z3A.41 41 weeks gestation of pregnancy; Z37.0 Single live birth